=== PATIENT | female | born 1935 | race African-American/Black ===

== ENCOUNTER → 2018-06-06 | Outpatient (CLI) | payer MEDICARE, BC ==
[2018-06-06 13:49] LABS: CHOLESTEROL 164 mg/dL (<200); HDL CHOLESTEROL 62 mg/dL (>40); LDL CHOLESTEROL 85 mg/dL (<100); SERUM ASSESSMENT Clear; TC:HDL 2.6 Ratio (Not establshd); TRIGLYCERIDE 86 mg/dL (<150); VLDL 17 mg/dL (<40)
[2018-06-06 23:07] LABS: GLYCOHEMOGLOBIN (HGB A1C) 5.7 % (4.8-5.6)
== END ==
LOC: M.LAB 12:48
PROVIDERS: Family Medicine
DX: E78.2 Mixed hyperlipidemia (principal); E11.42 Type 2 diabetes mellitus with diabetic polyneuropathy; E04.1 Nontoxic single thyroid nodule

== ENCOUNTER → 2018-07-24 | Outpatient (CLI) | payer MEDICARE, BC ==
--- NOTE | 2018-07-26 17:00 | 24HR ---
[place] [address] [employer] REPORT Name: PADMINI DIAZ Room: [facility]#: [id number] Admission: 07/24/18 Attend Phys: Destini Pak Discharge: Date of : 33 Date of Service: 07/26/18 1428 Report #: [id number] THIS REPORT FOR: //name// [facility] Test Date: 2018-07-26 Test Time: 14:28:17 Pat Name: PADMINI DIAZ Department: Room: Gender: F Investigations Consultant: : [id number] Requested By: Destini Pak Order Number: [id number] Russell MD: Remington Angulo Interpretive Statements 1. sinus rhythm with sinus bradycardia and tachycardia 2. rare pac 3. occasional pvc 4. symptoms did not correlate with an arrhythmia Electronically Signed On 07-26-2018 17:00:01 CDT by Remington Angulo [email or web address] <ELECTRONICALLY SIGNED> By: Remington Angulo MD, [facility] 07/26/18 1700 1428 1428 Remington Angulo MD, FACC /EPI
== END ==
LOC: M.CRD 11:00
DX: I49.3 Ventricular premature depolarization (principal); I25.119 Atherosclerotic heart disease of native coronary artery with unspecified angina pectoris; D64.9 Anemia, unspecified; M19.90 Unspecified osteoarthritis, unspecified site; E11.9 Type 2 diabetes mellitus without complications; K21.9 Gastro-esophageal reflux disease without esophagitis; E78.5 Hyperlipidemia, unspecified; E66.9 Obesity, unspecified; C49.A4 Gastrointestinal stromal tumor of large intestine; E04.1 Nontoxic single thyroid nodule; Z68.38 Body mass index [BMI] 38.0-38.9, adult; Z88.1 Allergy status to other antibiotic agents; Z88.2 Allergy status to sulfonamides; Z88.8 Allergy status to other drugs, medicaments and biological substances; Z86.718 Personal history of other venous thrombosis and embolism; Z79.899 Other long term (current) drug therapy

== ENCOUNTER → 2018-08-26 | Outpatient (CLI) | payer MEDICARE, BC | LOC: M.MRI 08:30 | DX: M47.26 Other spondylosis with radiculopathy, lumbar region (principal); M51.16 Intervertebral disc disorders with radiculopathy, lumbar region; M48.07 Spinal stenosis, lumbosacral region; M43.17 Spondylolisthesis, lumbosacral region; M51.37 Other intervertebral disc degeneration, lumbosacral region; M25.551 Pain in right hip; M25.552 Pain in left hip ==